=== PATIENT | male | born 1935 | race Caucasian/White ===

== ENCOUNTER 2017-01-06 13:05 | Inpatient (IN) | payer BC ==
--- NOTE | ~2017-01-06 | OP ---
Record Of Operation [facility] [address] [place]. [address] NAME: NILSA FOWLER : 37 STATUS : DIS IN PAT#: [id number] AGE: 81 ADM/REG DATE : 01/06/17 MR#: [id number] REPORT SERV DATE: 01/13/17 DICTATED BY: FAWN RAMÍREZ DATE: 01/13/17 REPORT STATUS : Draft TRANSCRIBED BY: MODL DATE: 01/13/17 DATE OF PROCEDURE: 01/06/2017 PREOPERATIVE DIAGNOSIS: Right periprosthetic patella fracture with loosening. POSTOPERATIVE DIAGNOSIS: Right periprosthetic patella fracture with loosening. PROCEDURE: Right patella revision. SURGEON: Mariana Ramírez M.D. COILER OPERATOR: See chart. INDICATIONS: An 81-year-old male had a right total knee arthroplasty some years ago by another surgeon, fell and fractured his patella and had persistent pain with a displaced and dislodged inferior pole and requested operative intervention as he has failed extensive nonoperative treatment. DESCRIPTION OF PROCEDURE: The patient was taken to the operating room and placed supine on the table in normal fashion. General anesthetic was induced per the anesthesiologist. The patient was carefully positioned, padded, prepped, and draped in normal sterile fashion. The right lower extremity was then exsanguinated with an Donn wrap and a tourniquet was inflated to 350 mm/Hg. A sharp dissection was made through the old incision and electrocautery through the fat. A sharp medial parapatellar approach was carried out. Benign-appearing fluid was sent for cultures and Gram stain. The patella was everted. The femoral and tibial components were examined and felt to be intact without significant wear or loosening or other mechanical complication. The inferior pole of patella had fractured free and some fibrous union to the larger superior pole. A portion of the patellar component from the total knee was over this loosened pole and mechanically unstable with it. There was also significant bony overgrowth medially and laterally and the remaining superior aspect of the patella. Patellar component was removed from the superior portion of patella with a saw and cement and polyethylene debrided. I opted at this point to resect the inferior pole of the patella as the patellar tendon extensor mechanism was intact. I resurfaced the remaining superior aspect of the patella by drilling with the patella drill guide and with the trial patella in place, there was excellent patellar tracking. All surfaces were copiously irrigated with pulsatile lavage. Vacuum-mixed cement was pressurized in a doughy phase in the patella. Patellar component placed, held with a clamp, and excess cement removed. Once all cement was hardened, knee was taken range of motion. Further extruded cement was removed with a small osteotome. The knee was then closed in a layered fashion over medium ConstaVac drain. The wound was dressed sterilely. The patient was then awakened and taken to the postanesthesia care unit without incident. COMPLICATIONS: None. SPECIMENS REMOVED: Patellar component. Record Of Operation [facility] [address] [place]. [address] NAME: NILSA FOWLER : 37 STATUS : DIS IN [facility]#: [id number] AGE: 81 ADM/REG DATE : 01/06/17 MR#: [id number] REPORT SERV DATE: 01/13/17 DICTATED BY: FAWN RAMÍREZ DATE: 01/13/17 REPORT STATUS : Draft TRANSCRIBED BY: BRENDA DATE: 01/13/17 ESTIMATED BLOOD LOSS: Trace. WTB/BRENDA Mariana Ramírez M.D. / [id number] CC: Ashley Cortez M.D.
[2017-01-06 13:50] LABS: BASOPHILS 0.3 %; BASOPHILS ABSOLUTE 0.02 10/3/uL (0.0-0.16); EOSINOPHILS 3.4 %; EOSINOPHILS ABSOLUTE 0.23 10/3/uL (0.0-0.53); IMMATURE GRANULOCYTES 0.3 %; IMMATURE GRANULOCYTES ABSOLUTE 0.02 10/3/uL (0.0-0.11); LYMPHOCYTES 21.9 %; LYMPHOCYTES ABSOLUTE 1.48 10/3/uL (0.67-4.30); MEAN CORPUS HGB CONC 35.1 g/dL (32.0-36.0); MEAN CORPUSCULAR HEMOGLOB 32.5 pg (26.0-34.0); MEAN PLATELET VOLUME 9.7 fL (9.2-13.0); MONOCYTES 10.2 %; MONOCYTES ABSOLUTE 0.69 10/3/uL (0.21-1.20); NEUTROPHILS 63.9 %; NEUTROPHILS ABSOLUTE 4.31 10/3/uL (2.02-8.40); RBC DISTRIBUTION WIDTH 14.4 % (12.0-16.0); RED CELL COUNT 5.39 10/6/uL (4.7-6.1); WHITE BLOOD CELLS 6.8 10/3/uL (4.5-10.5)
[2017-01-06 13:52] LABS: HEMATOCRIT 49.8 % (40.0-51.0); HEMOGLOBIN 17.5 g/dL (13.6-17.8); MEAN CORPUSCULAR VOLUME 92.4 fL (80-100); PLATELET COUNT 184 10/3/uL (150-400)
[2017-01-06 13:53] LABS: MANUAL DIFF NO %
[2017-01-06 13:56] LABS: PROTIME (NOT ORD) 13.3 SEC (12.0-14.5)
[2017-01-06 14:05] LABS: A/G RATIO 1.2 (0.7-1.9); ALBUMIN 4.1 G/DL (3.5-5.0); ALKALINE PHOSPHATASE 67 U/L (45-117); BUN (BLOOD UREA NITROGEN) 18 MG/DL (6-23); CALCIUM, SERUM 8.9 MG/DL (8.5-10.4); CHLORIDE, SERUM 107 MMOL/L (96-112); CO2 (CARBON DIOXIDE) 27 MMOL/L (24-34); GFR AFRICAN AMERICAN 82 ML/MIN (>=60); GFR NON AFRICAN AMERICAN 71 ML/MIN (>=60); GLOBULIN 3.4 G/DL (2.5-4.1); GLUCOSE, SERUM 97 MG/DL (60-99); POTASSIUM, SERUM 4.3 MMOL/L (3.5-5.3); SGOT(AST) 18 U/L (5-40); SGPT(ALT) 22 U/L (5-65); TOTAL BILIRUBIN 1.5 MG/DL (0-1.2); TOTAL PROTEIN 7.5 G/DL (6.0-8.5)
[2017-01-06 14:06] LABS: SODIUM, SERUM 144 MMOL/L (135-148)
[2017-01-06 14:55] LABS: ASCORBIC ACID (UR NOT ORDER) NEG (NEG); BILIRUBIN, URINE NEGATIVE (NEG); KETONE, URINE NEGATIVE (NEG); LEUKOCYTE ESTERASE(NOT OR TRACE (NEG); WBC (NOT ORDERED) (RFLEX) 5 (0-5)
[2017-01-06] MEDS ORDERED: FLAXSEED OIL1000 MG PO (15:09)
[2017-01-06] MEDS ORDERED: MAGOX4 PO (15:11)
[2017-01-06] MEDS ORDERED: VITAMIN D31000 UNIT PO (15:12)
[2017-01-07 05:24] LABS: HEMATOCRIT 48.8 % (40.0-51.0); HEMOGLOBIN 16.9 g/dL (13.6-17.8)
[2017-01-07 07:30] LABS: INTERNATIONAL NORMAL RATI 1.1 UNITS (-); PROTIME (NOT ORD) 13.8 SEC (12.0-14.5)
[2017-01-07 07:36] LABS: BUN (BLOOD UREA NITROGEN) 17 MG/DL (6-23); CALCIUM, SERUM 8.1 MG/DL (8.5-10.4); CHLORIDE, SERUM 106 MMOL/L (96-112); CO2 (CARBON DIOXIDE) 27 MMOL/L (24-34); CREATININE 1.01 MG/DL (0.70-1.30); GFR AFRICAN AMERICAN 81 ML/MIN (>=60); GFR NON AFRICAN AMERICAN 70 ML/MIN (>=60); POTASSIUM, SERUM 4.3 MMOL/L (3.5-5.3); SODIUM, SERUM 142 MMOL/L (135-148)
[2017-01-07 07:38] LABS: GLUCOSE, SERUM 127 MG/DL (60-99)
[2017-01-07] MEDS ORDERED: C5 PO (13:59)
== END 2017-01-07 16:11 | disposition home health service (06) | DRG 465 ==
LOC: SDC/OF 13:05 → 3SO 21:52
PROVIDERS: Specialist
PROC: 0QSD04Z Reposition Right Patella with Internal Fixation Device, Open Approach (ICD-10-PCS; 2017-01-06)
PROC: 0SPC0JC Removal of Synthetic Substitute from Right Knee Joint, Patellar Surface, Open Approach (ICD-10-PCS; principal; 2017-01-06 14:45)
PROC: 0SUC09C Supplement Right Knee Joint with Liner, Patellar Surface, Open Approach (ICD-10-PCS; 2017-01-06 14:45)
DX: M97.11XA Periprosthetic fracture around internal prosthetic right knee joint, initial encounter (principal)
CPT/HCPCS: 71010; 80048; 80053; 81001; 85014; 85018; 85025; 85610; 88300; 88304; 88311; 93005; 97110-GP; 97116-GP; 97162-GP; 97167-GO; A9270-GY; C1776; J0690; J1885; J2250; J2274; J2405; J2795; J3010